=== PATIENT | male | born 1960 | race Caucasian/White ===

== ENCOUNTER 2019-11-20 10:37 | Day surgery (SDC) | payer OTHER ==
[~2019-11-20] VITALS: Ht 182.9 cm; Wt 70.4 kg
[2019-11-20] VITALS (8 sets, daily range): BP systolic 123–151; BP diastolic 81–99
[2019-11-20] MEDS ORDERED: DICY10CA88 PO (11:20)
[2019-11-20] MEDS ORDERED: PANT20TA3 PO (11:21)
[2019-11-20 11:31] LABS: BASOPHILS % (AUTO) 0.4 % (0-1); EOSINOPHILS % (AUTO) 0.7 % (0-6); HEMATOCRIT 41.8 % (42.0-52.0); HEMOGLOBIN 14.1 g/dl (14.0-17.9); LYMPHOCYTES # (AUTO) 2.3 X10'3 (1.1-4.8); LYMPHOCYTES % (AUTO) 33.6 % (21-51); MEAN CORPUSCULAR HEMOGLOBIN 31.8 PG (27.0-31.0); MEAN CORPUSCULAR HGB CONC 33.6 g/dL (33.0-36.5); MEAN CORPUSCULAR VOLUME 94.6 FL (78-98); MONOCYTES # (AUTO) 0.5 X10'3 (0-0.9); MONOCYTES % (AUTO) 6.8 % (2-12); NEUTROPHILS # (AUTO) 3.9 X10'3 (1.8-7.7); NEUTROPHILS % (AUTO) 58.5 % (42-75); PLATELET COUNT 420 X10'3 (140-440); RED BLOOD COUNT 4.42 X10'6 (4.70-6.10); RED CELL DISTRIBUTION WIDTH 14.5 % (11.5-14.5); WHITE BLOOD COUNT 6.7 X10'3 (4.5-11.0)
[2019-11-20 11:43] LABS: ALBUMIN 3.1 G/DL (3.4-5.0); ANION GAP 8 (8-16); BLOOD UREA NITROGEN 7 MG/DL (7-18); BUN/CREATININE RATIO 9.2 (5.4-32.0); CALCIUM 8.4 MG/DL (8.5-10.1); CHLORIDE 106 MMOL/L (99-107); CREATININE 0.76 MG/DL (0.60-1.10); GLUCOSE 86 MG/DL (70-104); MAGNESIUM 1.7 MG/DL (1.5-2.4); POTASSIUM 3.4 MMOL/L (3.5-5.1); SODIUM 142 MMOL/L (135-145); eGFR > 90 ML/MIN
[2019-11-20] MEDS ORDERED: midazolam 2 mg/2 ml injection ONE ×3 (12:02→12:50)
[2019-11-20] MEDS ORDERED: proCHLORperazine 10 MG/2 ml inj ONE (12:02)
[2019-11-20] MEDS ORDERED: ceFAZolin 1000mg inj ONE (12:03)
[2019-11-20] MEDS ORDERED: vancomycin 1,000mg inj ONE (12:03)
[2019-11-20] MEDS ORDERED: LIDOcaine 1% W/epiNEPHrine 1:100,000 20ml vial ONE (12:03)
[2019-11-20] MEDS ORDERED: fentaNYL/PF 50MCG/1 ML 2ML syringe ONE (12:03)
[2019-11-20] MEDS ORDERED: normal saline 1000ml 1,000 ML IV SCH (13:55)
[2019-11-20] MEDS ORDERED: HYDROcodone/acetaminophen 5mg/325mg tablet PO PRN (16:00)
[2019-11-20] MEDS ORDERED: HYDROcodone/acetaminophen 10/325mg tab PO PRN (16:00)
== END 2019-11-20 16:10 | disposition home or self-care (01) ==
LOC: SSTAY O 10:37
PROVIDERS: ATTEND Internal Medicine Cardiovascular Disease
DX: Z45.010 Encounter for checking and testing of cardiac pacemaker pulse generator [battery] (principal); I44.2 Atrioventricular block, complete; Z98.890 Other specified postprocedural states; Z72.89 Other problems related to lifestyle; F17.210 Nicotine dependence, cigarettes, uncomplicated; Z79.899 Other long term (current) drug therapy; Z80.9 Family history of malignant neoplasm, unspecified; Z83.3 Family history of diabetes mellitus; Z82.49 Family history of ischemic heart disease and other diseases of the circulatory system; Z98.52 Vasectomy status
CPT/HCPCS: 33228; 36415; 80048; 83735; 85025; 85610; 93005; 99152; 99153; C1785; J0690; J0780; J2250; J3010; J3370; J7030; J7050; A4620; A6258

== ENCOUNTER 2024-05-21 08:29 | Inpatient (IN) | payer OTHER ==
[2024-05-15 14:25] LABS: BASOPHILS # (AUTO) 0.1 X10'3 (0-0.2); BASOPHILS % (AUTO) 0.6 % (0-1); EOSINOPHILS # (AUTO) 0.4 X10'3 (0-0.9); EOSINOPHILS % (AUTO) 4.7 % (0-6); LYMPHOCYTES % (AUTO) 35.7 % (21-51); MEAN CORPUSCULAR HEMOGLOBIN 33.2 PG (27.0-31.0); MEAN CORPUSCULAR HGB CONC 33.9 g/dL (33.0-36.5); MEAN PLATELET VOLUME 8.5 FL (7.4-10.4); MONOCYTES # (AUTO) 0.6 X10'3 (0-0.9); MONOCYTES % (AUTO) 7.5 % (2-12); NEUTROPHILS # (AUTO) 4.3 X10'3 (1.8-7.7); NEUTROPHILS % (AUTO) 51.5 % (42-75); PRE OP HEMATOCRIT 45.9 % (42.0-52.0); PRE OP HEMOGLOBIN 15.6 g/dL (14.0-17.9); PRE OP PLATELET COUNT 317 X10'3 (140-440); PRE OP WHITE BLOOD COUNT 8.3 10'3 (4.8-10.8); RED BLOOD COUNT 4.69 X10'6 (4.70-6.10); RED CELL DISTRIBUTION WIDTH 14.2 % (11.5-14.5)
[2024-05-15 14:29] LABS: PRE OP PROTIME 10.3 SECONDS (9.0-12.0)
[2024-05-15 14:31] LABS: ALBUMIN 3.5 G/DL (3.4-5.0); ALBUMIN/GLOBULIN RATIO 0.9 (1.1-1.5); ALKALINE PHOSPHATASE 138 IU/L (46-116); BLOOD UREA NITROGEN 13 MG/DL (7-18); BUN/CREATININE RATIO 15.5 (10.0-20.0); CALCIUM 8.7 MG/DL (8.5-10.1); CHLORIDE 104 MMOL/L (99-107); CREATININE 0.84 MG/DL (0.60-1.10); PRE OP ALT 21 U/L (30-65); PRE OP ANION GAP 7 (8-16); PRE OP AST 11 U/L (10-37); PRE OP BILIRUB, TOTAL 0.3 MG/DL (0.0-1.0); PRE OP GLUCOSE 92 MG/DL (70-104); PRE OP POTASSIUM 4.1 MMOL/L (3.4-5.1); PRE OP SODIUM 137 MMOL/L (135-145); TOTAL CARBON DIOXIDE 26.2 MMOL/L (24-32); TOTAL PROTEIN 7.3 G/DL (6.4-8.2); eGFR > 90 ML/MIN
[2024-05-15 14:46] LABS: BILIRUBIN,URINE NEGATIVE (Neg); CLARITY,URINE CLEAR (Clear); COLOR,URINE YELLOW (Yellow); GLUCOSE, URINE NEGATIVE (Neg); KETONES,URINE NEGATIVE (Neg); LEUKOCYTE ESTERASE ,URINE NEGATIVE (Neg); NITRITES, URINE NEGATIVE (Neg); OCCULT BLOOD,URINE NEGATIVE (Neg); PROTEIN,URINE NEGATIVE (Neg); UROBILINOGEN,URINE 0.2 E.U/dL (0.2-1.0)
[2024-05-15 14:48] LABS: UA COLLECTION TYPE CLN CATCH MIDSTREAM
[2024-05-21] VITALS (27 sets, daily range): BP systolic 92–138; BP diastolic 62–93; PULSE 70–90; RESP 8–18; TEMP 97.5–98; O2SAT 90–98
[~2024-05-21] VITALS: Ht 363.2 cm; Wt 71.0 kg
[2024-05-21] MEDS: ceFAZolin 2gm in dextrose, iso 50 ML IV ONE (05:30)
[~2024-05-21 08:29] MED LIST: APIX5TAB3 PO; ATOR40TA PO; CETI10TA14 PO; DOCU-337 PO; FLEC100T3 PO; GABA-530 PO; MIRT-142 PO; ondansetron/PF 4mg/2ml inj IV PRN
[2024-05-21] MEDS: famotidine 20mg tablet PO ONE (09:39)
[2024-05-21] MEDS: ringers solution, lacted 1,000 ML IV SCH ×2 (09:40→11:55)
[2024-05-21] MEDS: VANCOMYCIN 1GM 200ML H20 (PEG) 200 ML IV ONE (09:40)
[2024-05-21] MEDS ORDERED: iohexol 350 MG/ML 50ML vial IV ONE (10:45)
[2024-05-21] MEDS ORDERED: iohexol 350MG/ML 100ml bottle IV ONE (11:06)
[2024-05-21] MEDS ORDERED: sevoflurane 250ml liquid IH ONE (11:14)
[2024-05-21] MEDS ORDERED: midazolam 1 mg/ML 2ml injection ONE (11:15)
[2024-05-21] MEDS ORDERED: fentaNYL/PF 50MCG/1 ML 2ML syringe ONE (11:15)
[2024-05-21] MEDS ORDERED: propofol inj 20 ML IV ONE (11:18)
[2024-05-21] MEDS ORDERED: morphine 2 MG/ML inj. syringe IV PRN (11:55)
[2024-05-21] MEDS ORDERED: proCHLORperazine 10 MG/2 ml inj IV PRN ×2 (11:55→12:40)
[2024-05-21] MEDS ORDERED: meperidine/PF 25mg/ml syringe IV PRN ×3 (11:55)
[2024-05-21] MEDS ORDERED: morphine 4 MG/ML inj SYRINge IV PRN (11:55)
[2024-05-21] MEDS ORDERED: ondansetron/PF 4mg/2ml inj IV PRN ×2 (11:55→12:40)
[2024-05-21] MEDS ORDERED: neostigmine methylsulfate 1 MG/ML 10ml vial ONE (12:07)
[2024-05-21] MEDS ORDERED: dexamethasone sod phosphate 4mg/ml inj. ONE (12:07)
[2024-05-21] MEDS ORDERED: glycopyrrolate 0.2mg/ml inj ONE (12:07)
[2024-05-21] MEDS ORDERED: magnesium sulf-water 2g/50mL 50 ML IV PRN (12:40)
[2024-05-21] MEDS ORDERED: potassium Cl 40MEQ/270ML bag 250 ML IV PRN (12:40)
[2024-05-21] MEDS ORDERED: diphenhydrAMINE 25mg capsule PO PRN (12:40)
[2024-05-21] MEDS ORDERED: labetalol 20mg/4ml (5mg/ml) syringe IV PRN (12:40)
[2024-05-21] MEDS ORDERED: docusate sod 100mg capsule PO PRN (12:40)
[2024-05-21] MEDS ORDERED: hydrALAZINE 20mg/ml inj. IV PRN (12:40)
[2024-05-21] MEDS ORDERED: potassium Cl 20 mEq SR tablet PO PRN (12:40)
[2024-05-21] MEDS ORDERED: potassium CL 10mEq/100ml bag 100 ML IV PRN (12:40)
[2024-05-21] MEDS ORDERED: magnesium sulf-water 4G/100mL 100 ML IV PRN (12:40)
[2024-05-21] MEDS: normal saline 1000ml 1,000 ML IV SCH (12:40)
[2024-05-21] MEDS ORDERED: ALPRAZolam 0.25mg tablet PO PRN (12:40)
[2024-05-21] MEDS ORDERED: potassium Cl 20mEq/100mL bag 100 ML IV PRN (12:40)
[2024-05-21] MEDS ORDERED: potassium Cl 40MEQ/1/2NS 520ml 520 ML IV PRN (12:40)
[2024-05-21] MEDS: acetaminophen 1,000mg/100ml IV 100 ML IV STA (13:20)
[2024-05-21] MEDS: sod chloride 0.9% 10ml flush syringe IV SCH (16:00)
[2024-05-21] MEDS: ceFAZolin 1GM/D5W- ADD-VANTAGE 50 ML IV SCH (17:00)
[2024-05-21] MEDS: acetaminophen 325mg tablet PO PRN (17:01)
[2024-05-21] MEDS: VANCOMYCIN 1GM 200ML H20 (PEG) 200 ML IV SCH (19:45)
[2024-05-21] MEDS: flecainide 50mg tablet PO SCH (19:45)
[2024-05-21] MEDS: HYDROcodone/acetaminophen 5mg/325mg tablet PO PRN (19:46)
[2024-05-21] MEDS: docusate sod 100mg capsule PO SCH (19:47)
[2024-05-21] MEDS: gabapentin 300mg capsule PO SCH (19:47)
[2024-05-21] MEDS: nicotine 21mg patch - 24 hr TD SCH (21:27)
[2024-05-22 02:00] VITALS: BP 87/66; PULSE 73; RESP 18; TEMP 98.4; O2SAT 92
[2024-05-22] MEDS: pantoprazole 40mg Tablet.DR PO PRN (05:11)
[2024-05-22 05:50] VITALS: BP 104/74
[2024-05-22 07:00] VITALS: BP 104/74; PULSE 78; RESP 17; TEMP 98.1; O2SAT 93
[2024-05-22 08:23] LABS: BASOPHILS % (AUTO) 0.1 % (0-1); EOSINOPHILS % (AUTO) 0 % (0-6); HEMATOCRIT 40.9 % (42.0-52.0); HEMOGLOBIN 13.7 g/dl (14.0-17.9); LYMPHOCYTES # (AUTO) 2.1 X10'3 (1.1-4.8); LYMPHOCYTES % (AUTO) 16.7 % (21-51); MEAN CORPUSCULAR HEMOGLOBIN 32.6 PG (27.0-31.0); MEAN CORPUSCULAR HGB CONC 33.4 g/dL (33.0-36.5); MEAN CORPUSCULAR VOLUME 97.5 FL (78-98); MEAN PLATELET VOLUME 8.7 FL (7.4-10.4); MONOCYTES # (AUTO) 0.9 X10'3 (0-0.9); MONOCYTES % (AUTO) 7.2 % (2-12); NEUTROPHILS # (AUTO) 9.7 X10'3 (1.8-7.7); PLATELET COUNT 239 X10'3 (140-440); RED BLOOD COUNT 4.19 X10'6 (4.70-6.10); RED CELL DISTRIBUTION WIDTH 14.1 % (11.5-14.5); WHITE BLOOD COUNT 12.7 X10'3 (4.5-11.0)
[2024-05-22] MEDS: cetirizine 10mg tablet PO SCH (08:34)
[2024-05-22] MEDS: mirtazapine 15mg tablet PO SCH (08:34)
[2024-05-22] MEDS: apixaban 5mg tablet PO SCH (08:34)
[2024-05-22] MEDS: atorvastatin 20mg tablet PO SCH (08:35)
[2024-05-22 09:04] LABS: ALANINE AMINOTRANSFERASE 17 U/L (12-78); ALBUMIN/GLOBULIN RATIO 0.9 (1.1-1.5); ALKALINE PHOSPHATASE 97 IU/L (46-116); ANION GAP 9 (8-16); ASPARTATE AMINO TRANSFERASE 18 U/L (10-37); BILIRUBIN,TOTAL 0.4 MG/DL (0.1-1.0); BLOOD UREA NITROGEN 15 MG/DL (7-18); BUN/CREATININE RATIO 18.1 (10.0-20.0); CALCIUM 8.5 MG/DL (8.5-10.1); CHLORIDE 102 MMOL/L (99-107); CREATININE 0.83 MG/DL (0.60-1.10); GLUCOSE 135 MG/DL (70-104); MAGNESIUM 1.8 MG/DL (1.5-2.4); POTASSIUM 4.1 MMOL/L (3.5-5.1); PRO BRAIN NATRIURETIC PEPTIDE 169 PG/ML (0-125); SODIUM 132 MMOL/L (135-145); TOTAL CARBON DIOXIDE 20.9 MMOL/L (24-32); TOTAL PROTEIN 6.4 G/DL (6.4-8.2); eCRCL 90 ML/MIN; eGFR > 90 ML/MIN
[2024-05-22 09:30] LABS: PROTHROMBIN TIME 10.2 SECONDS (9.0-12.0)
[2024-05-22 11:00] VITALS: BP 113/74; PULSE 81; RESP 18; TEMP 97.9; O2SAT 95
== END 2024-05-22 13:37 | disposition home or self-care (01) | DRG 274 ==
LOC: PAS IN 08:29 → EDSTATUS 11:30 → PCU 3S 14:48
PROVIDERS: ADMIT Student in an Organized Health Care Education/Training Program; ATTEND Student in an Organized Health Care Education/Training Program
PROC: B24BZZ4 Ultrasonography of Heart with Aorta, Transesophageal (ICD-10-PCS; 2024-05-21)
PROC: 03HY32Z Insertion of Monitoring Device into Upper Artery, Percutaneous Approach (ICD-10-PCS; 2024-05-21)
PROC: 02L73DK Occlusion of Left Atrial Appendage with Intraluminal Device, Percutaneous Approach (ICD-10-PCS; principal; 2024-05-21 11:14)
DX: I48.91 Unspecified atrial fibrillation (principal); Z00.6 Encounter for examination for normal comparison and control in clinical research program; I44.0 Atrioventricular block, first degree; Z79.01 Long term (current) use of anticoagulants; Z79.899 Other long term (current) drug therapy
CPT/HCPCS: 33340; 36415; 71045; 71046; 76937; 80053; 81003; 82948; 83735; 83880; 85025; 85610; 85730; 86885; 86900; 86901; 86920; 87081; 93005; 93308; 93312; 93325; A4615; A4618; A6258; A6449; C1760; C1889; C1893; C1894; G0378; J0131; J0690; J1100; J1644; J2250; J2704; J2710; J3010; J3372; J3490; J7040; J7120; Q9967

== ENCOUNTER 2024-07-21 10:11 | Day surgery (SDC) | payer OTHER ==
[~2024-07-21] VITALS: Ht 182.9 cm; Wt 75.9 kg
[2024-07-21] VITALS (15 sets, daily range): BP systolic 100–150; BP diastolic 69–98; PULSE 73–82; RESP 9–17; TEMP 98.2; O2SAT 90–96
[~2024-07-21 10:11] MED LIST changes: -ondansetron/PF 4mg/2ml inj IV PRN
[2024-07-21 11:01] LABS: BASOPHILS # (AUTO) 0.1 X10'3 (0-0.2); BASOPHILS % (AUTO) 0.6 % (0-1); EOSINOPHILS # (AUTO) 0.2 X10'3 (0-0.9); EOSINOPHILS % (AUTO) 2.4 % (0-6); HEMATOCRIT 47.6 % (42.0-52.0); HEMOGLOBIN 16.6 g/dl (14.0-17.9); LYMPHOCYTES # (AUTO) 4.2 X10'3 (1.1-4.8); MEAN CORPUSCULAR HEMOGLOBIN 33.5 PG (27.0-31.0); MEAN CORPUSCULAR HGB CONC 34.8 g/dL (33.0-36.5); MEAN CORPUSCULAR VOLUME 96.3 FL (78-98); MONOCYTES # (AUTO) 0.8 X10'3 (0-0.9); MONOCYTES % (AUTO) 8.3 % (2-12); NEUTROPHILS # (AUTO) 4.5 X10'3 (1.8-7.7); NEUTROPHILS % (AUTO) 45.7 % (42-75); PLATELET COUNT 290 X10'3 (140-440); RED BLOOD COUNT 4.94 X10'6 (4.70-6.10); RED CELL DISTRIBUTION WIDTH 14.4 % (11.5-14.5); WHITE BLOOD COUNT 9.8 X10'3 (4.5-11.0)
[2024-07-21 11:20] LABS: ALBUMIN 3.5 G/DL (3.4-5.0); ANION GAP 14 (8-16); BLOOD UREA NITROGEN 11 MG/DL (7-18); BUN/CREATININE RATIO 14.9 (10.0-20.0); CALCIUM 8.8 MG/DL (8.5-10.1); CHLORIDE 105 MMOL/L (99-107); CREATININE 0.74 MG/DL (0.60-1.10); GLUCOSE 109 MG/DL (70-104); POTASSIUM 4.1 MMOL/L (3.5-5.1); SODIUM 141 MMOL/L (135-145); TOTAL CARBON DIOXIDE 21.7 MMOL/L (24-32); eCRCL 107 ML/MIN; eGFR > 90 ML/MIN
[2024-07-21 11:23] LABS: APTT 27 SECONDS (22-32); INR 0.9 INR; PROTHROMBIN TIME 9.8 SECONDS (9.0-12.0)
[2024-07-21] MEDS: MIDAZolam 1mg/ml 10ml vial IV ONE (11:32)
[2024-07-21] MEDS: fentaNYL/PF 50MCG/1 ML 2ML syringe IV ONE (11:32)
[2024-07-21] MEDS ORDERED: ASPI-1265 PO (12:14)
[2024-07-21] MEDS ORDERED: CLOP75TA33 PO (12:14)
[2024-07-22] MEDS ORDERED: ASPI-611 PO (09:03)
[2024-07-22] MEDS ORDERED: CLOP75TA33 PO (09:03)
== END 2024-07-21 13:05 | disposition home or self-care (01) ==
LOC: SSTAY O 10:11
PROVIDERS: ATTEND Student in an Organized Health Care Education/Training Program
DX: Z95.818 Presence of other cardiac implants and grafts (principal); I49.5 Sick sinus syndrome; I35.0 Nonrheumatic aortic (valve) stenosis; G45.9 Transient cerebral ischemic attack, unspecified; E78.5 Hyperlipidemia, unspecified; Z95.0 Presence of cardiac pacemaker; F17.290 Nicotine dependence, other tobacco product, uncomplicated; Z79.01 Long term (current) use of anticoagulants
CPT/HCPCS: 36415; 80048; 85025; 85610; 85730; 93312; 93325; 94760; J2250; J3010; J7030; A4620